=== PATIENT | female | born 1965 | race Caucasian/White ===

== ENCOUNTER 2018-04-02 12:42 | Emergency (ER) | payer OTHER ==
[2018-04-02 13:25] LABS: Absolute Lymphocytes (CBC) 1.6 K/uL (0.7-4.9); Absolute Monocytes 0.3 K/uL (0.1-1.3); Absolute Neutrophil 5.6 K/uL (1.8-8.0); Basophils % 0.7 % (0-1.3); Eosinophils % 0.8 % (0-4.4); Hematocrit 42.2 % (36.0-45.0); Lymphocytes % 20.9 % (15.3-44.8); MCH 31.8 pg (27.0-35.0); MPV 9.3 fL (7.6-11.3); Monocytes % 4.4 % (3.3-12.3); RBC Red Blood Cell Count 4.54 M/uL (3.86-4.86)
[2018-04-02 13:27] LABS: Protime INR 0.98
--- NOTE | 2018-04-02 13:31 | RAD REPORT ---
EXAM DESCRIPTION: CT - Head Brain Wo Cont - 04/02/2018 1:21 pm CLINICAL HISTORY: Dizziness COMPARISON: None. TECHNIQUE: Computed axial tomography of the head was obtained. IV contrast was not requested. All CT scans are performed using dose optimization technique as appropriate and may include automated exposure control or mA/KV adjustment according to patient size. FINDINGS: An intracranial bleed is not seen . The ventricles are normal in caliber. No extra-axial fluid collection is noted. Fluid within the sinuses/ mastoids is not seen. IMPRESSION: No acute intracranial abnormality is seen. If patient's symptoms persist MRI of the bra in would be recommended.
--- NOTE | 2018-04-02 13:32 | RAD REPORT ---
EXAM DESCRIPTION: Justine Single View04/02/2018 1:25 pm CLINICAL HISTORY: Chest pain COMPARISON: none FINDINGS: The lungs appear clear of acute infiltrate. The heart is normal size IMPRESSION: No acute abnormalities displayed
[2018-04-02] MEDS ORDERED: DIAZEPAM 5 MG TABLET ONE ×2 (13:33→17:22)
[2018-04-02] MEDS ORDERED: ONDANSETRON 4 MG/2 ML VIAL ONE (13:33)
[2018-04-02 13:57] LABS: ALT/SGPT 34 U/L (12-78); AST/SGOT 23 U/L (15-37); Albumin 4.1 g/dL (3.4-5.0); Alkaline Phosphatase 96 U/L (45-117); BUN Blood Urea Nitrogen 13 mg/dL (7-18); Bicarbonate 24 mmol/L (21-32); Bilirubin Direct 0.1 mg/dL (0-0.2); Bilirubin Total 0.6 mg/dL (0.2-1.0); Glucose Level 132 mg/dL (74-106); Magnesium 2.3 mg/dL (1.8-2.4); NT PRO-BNP 37 pg/mL (<125); Potassium 3.7 mmol/L (3.5-5.1); Protein, Total 7.5 g/dL (6.4-8.2); Sodium Level 140 mmol/L (136-145); Troponin (Emerg Dept Use Only) < 0.02 ng/mL (0.0-0.045)
[2018-04-02 17:58] LABS: Urine Blood NEGATIVE (NEG); Urine Glucose NEGATIVE (NEG); Urine Protein NEGATIVE (NEG); Urine Specific Gravity 1.015 (1.005-1.030)
--- NOTE | 2018-04-02 18:11 | ER ---
Nurse's Notes [facility] Name: Kira Trotter Age: 52 yrs Sex: Female : 1965 Arrival Date: 04/02/2018 Time: 12:48 Bed 5 Private MD: None, None Diagnosis: Benign paroxysmal vertigo;Chest pain, unspecified Presentation: 04/02 12:50 Presenting complaint: Patient states: dizziness since 0830 and chest pressure that aa5 began 1 hr ago. Pt reports nausea, denies vomiting. 12:50 Acuity: VINOD 3 aa5 12:50 Transition of care: patient was not received from another setting of care. Onset of aa5 symptoms was April 02, 2018. Care prior to arrival: None. 12:50 Method Of Arrival: Wheelchair aa5 13:55 Risk Assessment: Do you want to hurt yourself or someone else? Patient reports no jl7 desire to harm self or others. Initial Sepsis Screen: Does the patient meet any 2 criteria? No. Patient's initial sepsis screen is negative. Does the patient have a suspected source of infection? No. Patient's initial sepsis screen is negative. 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 - Ebola Screening: : No symptoms or risks identified at this time. - Social history:: Smoking status: unknown. Screenin:00 Abuse screen: Denies threats or abuse. Denies injuries from another. Nutritional jl7 screening: No deficits noted. Tuberculosis screening: No symptoms or risk factors identified. Fall Risk IV access (20 points). Total Stiles Fall Scale indicates No Risk (0-24 pts). Assessment: 13:00 General: Appears in no apparent distress. uncomfortable, Behavior is cooperative, jl7 appropriate for age, anxious. Pain: Complains of pain in mid-sternal area Pain currently is 1 out of 10 on a pain scale. Quality of pain is described as pressure, Pain began suddenly, Is intermittent. Neuro: Level of Consciousness is awake, alert, obeys commands, Oriented to person, place, time, situation. Cardiovascular: Heart tones S1 S2 present Patient's skin is warm and dry. Respiratory: Airway is patent Respiratory effort is even, unlabored, Respiratory pattern is regular, symmetrical, Breath sounds are clear bilaterally. Denies shortness of breath. GI: Abdomen is round non-distended, Bowel sounds present X 4 quads. Reports nausea, Patient currently denies diarrhea, vomiting. : No signs and/or symptoms were reported regarding the genitourinary system. EENT: No signs and/or symptoms were reported regarding the EENT system. Derm: Skin is pink, warm \T\ dry. Musculoskeletal: No signs and/or symptoms reported regarding the musculoskeletal system. 14:00 Reassessment: Patient appears in no apparent distress at this time. Patient and/or jl7 family updated on plan of care and expected duration. Pain level reassessed. Patient is alert, oriented x 3, equal unlabored respirations, skin warm/dry/pink. 15:00 Reassessment: No changes from previously documented assessment. Patient and/or family jl7 updated on plan of care and expected duration. Pain level reassessed. Patient is alert, oriented x 3, equal unlabored respirations, skin warm/dry/pink. 16:22 Reassessment: Patient appears in no apparent distress at this time. Patient and/or jl7 family updated on plan of care and expected duration. Pain level reassessed. Patient is alert, oriented x 3, equal unlabored respirations, skin warm/dry/pink. 17:26 Reassessment: Patient appears in no apparent distress at this time. No changes from jl7 previously documented assessment. Patient and/or family updated on plan of care and expected duration. Pain level reassessed. Patient is alert, oriented x 3, equal unlabored respirations, skin warm/dry/pink. Vital Signs: 12:52 BP 167 / 95; Pulse 81; Resp 16 S; Temp 97.6(O); Pulse Ox 98% on R/A; aa5 14:00 BP 124 / 77; Pulse 89 MON; Resp 17 S; Temp 97.6; Pulse Ox 98% on R/A; sg 16:21 BP 105 / 53; Pulse 83; Resp 16 S; Pulse Ox 98% on R/A; jl7 17:26 BP 108 / 62; Pulse 73; Resp 18 S; Pulse Ox 98% on R/A; jl7 18:20 BP 108 / 67; Pulse 75; Resp 14; Pulse Ox 98% on R/A; jl7 ED Course: 12:48 Patient arrived in ED. mr 12:48 None, None is Private Physician. mr 12:53 Scott Barraza, ZOE is PHCP. pm1 12:53 Ladarius Shelby MD is Attending Physician. pm1 12:58 Arm band placed on. aa5 13:00 Patient has correct armband on for positive identification. Placed in gown. Bed in low jl7 position. Call light in reach. Side rails up X 1. ekg monitor on. Pulse ox on. NIBP on. Warm blanket given. 13:05 EKG done, by ED staff, reviewed by Scott Barraza NP. jb1 13:10 Inserted saline lock: 22 gauge in right antecubital area, using aseptic technique. jb1 Blood collected. 13:10 Initial lab(s) drawn, by me, sent to lab. jb1 13:21 CT Head Brain wo Cont In Process Unspecified. EDMS 13:21 CT completed. Patient tolerated procedure well. Patient moved to radiology Patient bq moved back from CT. 13:23 Jed Cid, RN is Primary Nurse. jl7 13:24 X-ray completed. Patient tolerated procedure well. Patient moved to radiology via jb2 wheelchair. Patient moved back from radiology. 13:26 XRAY Chest (1 view) In Process Unspecified. EDMS 13:49 Triage completed. aa5 17:26 Repeat lab(s) drawn. by me, sent to lab. jl7 18:21 No provider procedures requiring assistance completed. IV discontinued, intact, jl7 bleeding controlled, No redness/swelling at site. Pressure dressing applied. Administered Medications: 13:35 Drug: Valium 5 mg Route: PO; jl7 14:30 Follow up: Response: No adverse reaction; Anxiety decreased jl7 13:38 Drug: Zofran 4 mg Route: IVP; Site: right antecubital; jl7 14:00 Follow up: Response: No adverse reaction; Nausea is decreased jl7 17:15 Drug: Valium 5 mg Route: PO; jl7 18:00 Follow up: Response: No adverse reaction; Anxiety decreased jl7 Outcome: 18:10 Discharge ordered by . pm1 18:21 Discharged to home ambulatory. jl7 18:21 Condition: stable 18:21 Discharge instructions given to patient, Instructed on discharge instructions, follow up and referral plans. medication usage, Demonstrated understanding of instructions, follow-up care, medications, Prescriptions given X 1. 18:22 Patient left the ED. jl7 Signatures: Dispatcher [employer] EDMS Jonathan Hays jb1 Cornell Edwards, TOÑITO rendon PostRosemarie Jesse jb2 Ayesha Stoner Irene, RN RN iw Calderon, Audri, RN RN aa5 Scott Barraza, ZOE MACHINE FILLER pm1 Jed Cid RN RN jl7 Corrections: (The following items were deleted from the chart) 13:02 12:50 Presenting complaint: Patient states: dizziness since 0830 and chest pressure aa5 that began 1 hr ago. Pt reports nausea, denies vomiting. aa5 13:56 13:55 Inserted saline lock: 22 gauge in right antecubital area, using aseptic jb1 technique. Blood collected. jb1
--- NOTE | 2018-04-02 18:11 | EDPHYS ---
Physician Documentation [facility] Name: Kira Trotter Age: 52 yrs Sex: Female : 1965 Arrival Date: 04/02/2018 Time: 12:48 Bed 5 Private MD: None, None ED Physician Ladarius Shelby HPI: 04/02 14:00 This 52 yrs old Female presents to ER via Wheelchair with complaints of pm1 Dizziness, Nausea, Chest Pressure. 14:00 The patient presents with sense of spinning, vertigo. Onset: The symptoms/episode pm1 began/occurred this morning, at 08:00. Context: occurred at home, just prior to the episode the patient experienced no apparent symptoms. Modifying factors: The symptoms are alleviated by holding head still, the symptoms are aggravated by movement of head, standing up, changing position. Associated signs and symptoms: Pertinent positives: chest pain, nausea, Pertinent negatives: abdominal pain, blurred vision, focal weakness, headache, numbness, shortness of breath, tingling, vomiting. The patient has not experienced similar symptoms in the past. The patient has not recently seen a physician. Patient onset of the sense of spinning this AM. Room spinning with changing position and moving her head. Chest pain started 1 hour prior to arrival. Left sided, reproduced with palpation and movement of left arm.. 14:00 Vertigo improved at home with focusing on an object and not moving her head. 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 - Ebola Screening: : No symptoms or risks identified at this time. - Social history:: Smoking status: unknown. ROS: 14:00 Constitutional: Negative for fever, chills, and weight loss, Eyes: Negative for injury, pm1 pain, redness, and discharge, ENT: Negative for injury, pain, and discharge, Neck: Negative for injury, pain, and swelling, Respiratory: Negative for shortness of breath, cough, wheezing, and pleuritic chest pain, Abdomen/GI: Negative for abdominal pain, nausea, vomiting, diarrhea, and constipation, Back: Negative for injury and pain, : Negative for injury, bleeding, discharge, and swelling, MS/Extremity: Negative for injury and deformity, Skin: Negative for injury, rash, and discoloration. 14:00 Cardiovascular: Positive for chest pain, Negative for edema, orthopnea, palpitations. 14:00 Neuro: Positive for Vertigo, Negative for numbness, tingling, weakness. Exam: 14:00 Constitutional: This is a well developed, well nourished patient who is awake, alert, pm1 and in no acute distress. Head/Face: Normocephalic, atraumatic. ENT: Nares patent. No nasal discharge, no septal abnormalities noted. Tympanic membranes are normal and external auditory canals are clear. Oropharynx with no redness, swelling, or masses, exudates, or evidence of obstruction, uvula midline. Mucous membranes moist. Neck: Trachea midline, no thyromegaly or masses palpated, and no cervical lymphadenopathy. Supple, full range of motion without nuchal rigidity, or vertebral point tenderness. No Meningismus. Chest/axilla: Normal chest wall appearance and motion. Nontender with no deformity. No lesions are appreciated. Cardiovascular: Regular rate and rhythm with a normal S1 and S2. No gallops, murmurs, or rubs. Normal PMI, no JVD. No pulse deficits. Respiratory: Lungs have equal breath sounds bilaterally, clear to auscultation and percussion. No rales, rhonchi or wheezes noted. No increased work of breathing, no retractions or nasal flaring. Abdomen/GI: Soft, non-tender, with normal bowel sounds. No distension or tympany. No guarding or rebound. No evidence of tenderness throughout. Back: No spinal tenderness. No costovertebral tenderness. Full range of motion. Skin: Warm, dry with normal turgor. Normal color with no rashes, no lesions, and no evidence of cellulitis. MS/ Extremity: Pulses equal, no cyanosis. Neurovascular intact. Full, normal range of motion. 14:00 Eyes: Periorbital structures: appear normal, Pupils: no acute changes, Extraocular movements: intact throughout, Conjunctiva: normal, Corneas: are normal, Lids and lashes: appear normal, bilaterally, Nystagmus: rotary nystagmus noted, bilaterally. Vital Signs: 12:52 BP 167 / 95; Pulse 81; Resp 16 S; Temp 97.6(O); Pulse Ox 98% on R/A; aa5 14:00 BP 124 / 77; Pulse 89 MON; Resp 17 S; Temp 97.6; Pulse Ox 98% on R/A; sg 16:21 BP 105 / 53; Pulse 83; Resp 16 S; Pulse Ox 98% on R/A; jl7 17:26 BP 108 / 62; Pulse 73; Resp 18 S; Pulse Ox 98% on R/A; jl7 18:20 BP 108 / 67; Pulse 75; Resp 14; Pulse Ox 98% on R/A; jl7 MDM: 12:53 Patient medically screened. pm1 18:09 Data reviewed: vital signs. Data interpreted: Pulse oximetry: on room air is 98 %. pm1 Interpretation: normal. Counseling: I had a detailed discussion with the patient and/or guardian regarding: the historical points, exam findings, and any diagnostic results supporting the discharge/admit diagnosis, lab results, radiology results, the need for outpatient follow up, to return to the emergency department if symptoms worsen or persist or if there are any questions or concerns that arise at home. 04/02 12:59 Order name: Basic Metabolic Panel; Complete Time: 14:08 pm1 04/02 12:59 Order name: CBC with Diff; Complete Time: 13:46 pm1 04/02 12:59 Order name: LFT's; Complete Time: 14:08 pm1 04/02 12:59 Order name: Magnesium; Complete Time: 14:08 pm1 04/02 12:59 Order name: NT PRO-BNP; Complete Time: 14:08 pm1 04/02 12:59 Order name: PT-INR; Complete Time: 13:46 pm1 04/02 12:59 Order name: Troponin (emerg Dept Use Only); Complete Time: 14:08 pm1 04/02 12:59 Order name: XRAY Chest (1 view); Complete Time: 13:46 pm1 04/02 12:59 Order name: CT Head Brain wo Cont; Complete Time: 13:46 pm1 04/02 14:54 Order name: Urine Dipstick--Ancillary (enter results); Complete Time: 18:09 sg 04/02 17:10 Order name: Troponin (emerg Dept Use Only); Complete Time: 18:09 pm1 04/02 12:59 Order name: EKG; Complete Time: 13:00 pm1 04/02 12:59 Order name: Cardiac monitoring; Complete Time: 13:57 pm1 04/02 12:59 Order name: EKG - Nurse/Tech; Complete Time: 13:57 pm1 04/02 12:59 Order name: IV Saline Lock; Complete Time: 13:57 pm1 04/02 12:59 Order name: Labs collected and sent; Complete Time: 13:57 pm1 04/02 12:59 Order name: O2 Per Protocol; Complete Time: 13:57 pm1 04/02 12:59 Order name: O2 Sat Monitoring; Complete Time: 13:57 pm1 Administered Medications: 13:35 Drug: Valium 5 mg Route: PO; jl7 14:30 Follow up: Response: No adverse reaction; Anxiety decreased jl7 13:38 Drug: Zofran 4 mg Route: IVP; Site: right antecubital; jl7 14:00 Follow up: Response: No adverse reaction; Nausea is decreased jl7 17:15 Drug: Valium 5 mg Route: PO; jl7 18:00 Follow up: Response: No adverse reaction; Anxiety decreased jl7 Disposition: 04/03 11:44 Co-signature as Attending Physician, Ladarius Shelby MD. Disposition: 04/02/18 18:10 Discharged to Home. Impression: Benign paroxysmal vertigo, Chest pain, unspecified. - Condition is Stable. - Discharge Instructions: Benign Positional Vertigo, Nonspecific Chest Pain. - Prescriptions for Valium 5 mg Oral Tablet - take 1 tablet by ORAL route every 8 hours As needed; 20 tablet. - Medication Reconciliation Form, Thank You Letter form. - Follow up: Emergency Department; When: As needed; Reason: Worsening of condition. Follow up: Private Physician; When: 2 - 3 days; Reason: Recheck today's complaints, Continuance of care, Re-evaluation by your physician. - Problem is new. - Symptoms have improved. Signatures: Dispatcher [employer] EDMS Joy Calle, RN RN aa5 Scott Barraza NP OFFSET PRESS OPERATOR HELPER pm1 Jed Cid RN RN jl7 Ladarius Shelby MD MD gs Corrections: (The following items were deleted from the chart) 04/02 18:22 18:10 04/02/2018 18:10 Discharged to Home. Impression: Benign paroxysmal vertigo; Chest jl7 pain, unspecified. Condition is Stable. Forms are Medication Reconciliation Form, Thank You Letter, Antibiotic Education, Prescription Opioid Use. Follow up: Emergency Department; When: As needed; Reason: Worsening of condition. Follow up: Private Physician; When: 2 - 3 days; Reason: Recheck today's complaints, Continuance of care, Re-evaluation by your physician. Problem is new. Symptoms have improved. pm1
--- NOTE | 2018-04-04 07:07 | EKG ---
Test Date: 2018-04-02 Test Time: 13:05:11 Claim Rep: MAGDALENA MEASUREMENT RESULTS: Intervals: Rate: 70 AK: 160 QRSD: 86 QT: 418 QTc: 451 [place]: P: 51 AK: 160 QRS: 31 T: 44 INTERPRETIVE STATEMENTS: Normal sinus rhythm Low voltage QRS Cannot rule out Anterior infarct, age undetermined Abnormal ECG No previous ECG available for comparison Electronically Signed On 04-04-18 07:04:02 BUILDING CODE INSPECTOR by Anoop Love
== END 2018-04-02 18:22 | disposition home or self-care (01) ==
LOC: ER 12:42
DX: H81.10 Benign paroxysmal vertigo, unspecified ear (principal); R07.89 Other chest pain; R94.31 Abnormal electrocardiogram [ECG] [EKG]; Z88.8 Allergy status to other drugs, medicaments and biological substances
CPT/HCPCS: 36415; 70450; 71045; 80048; 80076; 81003; 83735; 83880; 84484; 85025; 85610; 93005; 96374; 99285; J2405